=== PATIENT | female | born 1975 | race Caucasian/White ===

== ENCOUNTER 2020-02-24 09:54 | Emergency (ER) | payer SELFPAY ==
[~2020-02-24] VITALS: Ht 162 cm; Wt 100.1 kg
[2020-02-24 10:00] VITALS: BP 133/86
--- OUTSIDE RECORDS SUMMARY | 2020-02-24 10:00 | XMS REPORT ---
Author Author Bria Boyd Organization [facility] Address [address], [place] [id number] Care Team Providers Care Tearoom Hostess Name Role Phone Delta Boyd Unavailable PROBLEMS Unknown Problems ALLERGIES Unknown Allergies SOCIAL HISTORY No smoking Hx information available PLAN OF CARE VITAL SIGNS MEDICATIONS Unknown Medications RESULTS No Results PROCEDURES No Known procedures IMMUNIZATIONS No Known Immunizations
--- OUTSIDE RECORDS SUMMARY | 2020-02-24 10:00 | XMS REPORT ---
Author Author Bria Tolentino Organization [employer] Address Unknown Phone Unavailable Care Team Providers Care Assembler [place] Name Role Phone Ruth Ann Tolentino CP Unavailable Allergies, Adverse Reactions, Alerts Substance Reaction Event Type Penicillin Rash Non Drug Allergy Problems Problem Type Condition ICD-9 Code Onset Dates Condition Statu s Assessment Vaginal odor 625.9 Active Medications Medication Code System Code Instructions Start Date End Date Status Dosage hydrocodone Unknown 0 January 10, 2014 Active as di rected Metronidazole [facility] [address]-07 500 mg Orally Twice a day January 10, 2014 Active 1 tablet Procedures Procedure Coding System Code Date ESTABPT LEVEL III CPT-4 01198 January 10, 2014 Results No Known Results Summary Purpose [employer] Submission
--- OUTSIDE RECORDS SUMMARY | 2020-02-24 10:00 | XMS REPORT ---
Author Author Bria Boyd Organization [facility] Address [address], [place] [id number] Care Team Providers Care Phys Asst Name Role Phone Delta Boyd Unavailable PROBLEMS Unknown Problems ALLERGIES Unknown Allergies SOCIAL HISTORY No smoking Hx information available PLAN OF CARE VITAL SIGNS MEDICATIONS Unknown Medications RESULTS No Results PROCEDURES No Known procedures IMMUNIZATIONS No Known Immunizations
--- NOTE | 2020-02-24 10:21 | ED General ---
General Chief Complaint: Upper Extremity Stated Complaint: ARM AND HANDS NUMB AND SWELLING Nursing Triage Note: States she has bulging discs in her neck that she is supposed to have surgery for. Two days ago the right arm and hand started going numb and now both hands and arms are numb and painful. States she has been unable to sleep due to pain and numbness. Pain rated at 9/10. Has taken mobic and lyrica for pain. Nursing Sepsis Screen: No Definite Risk Source of Information: Patient Exam Limitations: Intoxication History of Present Illness Date Seen by Provider: Feb 24, 2020 Time Seen by Provider: 10:10 Initial Comments Patient is a 45-year-old female with history of cervical radiculopathy currently scheduled to undergo surgery who presents with intermittent neuropathy of both hands and forearms. Patient states symptoms began 3 days ago. She is currently on the Lyrica, mobic and a muscle relaxers, but states her pain is still currently not admitted 10. She is in the [facility]. She denies motor weakness of the upper extremities. Denies injury or trauma to the region. Denies worsening neck pain. Other acute symptoms or complaints. Timing/Duration: 3-4 Days Severity: Severe Modifying Factors: improves with Medication Associated Systoms: Denies Symptoms Allergies and Home Medications Allergies Coded Allergies: Penicillins (Verified Allergy, Unknown, unknown , 02/24/20) Patient Home Medication List Home Medication List Reviewed: Yes Review of Systems Review of Systems Constitutional: no symptoms reported EENTM: no symptoms reported Respiratory: no symptoms reported Cardiovascular: no symptoms reported Gastrointestinal: no symptoms reported Musculoskeletal: see HPI Psychiatric/Neurological: See HPI, Anxiety, Paresthesia; Denies Weakness Past Ievutdr-Kipngr-Kylyry Hx Past Med/Social Hx: Reviewed Nursing Past Med/Soc Hx Patient Social History Alcohol Use: Denies Use Recreational Drug Use: No Smoking Status: Current Everyday Smoker Type Used: Electronic/Vapor 2nd Hand Smoke Exposure: Yes Recent Foreign Travel: No Contact w/Someone Who Travel: No Recent Infectious Disease Expo: No Recent Hopitalizations: No Seasonal Allergies Seasonal Allergies: No Past Medical History Surgeries: Yes Gallbladder, Tonsillectomy, Tubal Ligation Respiratory: No Cardiac: No Neurological: No Genitourinary: No Gastrointestinal: No Musculoskeletal: Yes (bulging discs in neck ) Endocrine: No HEENT: No Cancer: No Psychosocial: No Integumentary: No Physical Exam Vital Signs Vital Signs - First Documented 6/13/20 10:00 Temp 36.3 Pulse 98 Resp 20 B/P (MAP) 133/86 (102) Pulse Ox 96 Capillary Refill : Less Than 3 Seconds Height, Weight, BMI Height: '" Weight: lbs. oz. kg; 38.00 BMI Method: General Appearance: Anxious Eyes: Bilateral Eye Normal Inspection, Bilateral Eye PERRL, Bilateral Eye EOMI HEENT: PERRL/EOMI Neck: Normal Inspection, Supple Respiratory: Chest Non Tender, Lungs Clear Extremity: Other Neurologic/Psychiatric: Alert, Oriented x3, No Motor/Sensory Deficits; No Motor Weakness Skin: Normal Color, Warm/Dry Focused Exam Sepsis Stage: Ruled Out Progress/Results/Core Measures Suspected Sepsis Recent Fever Within 48 Hours: No Infection Criteria Present: None New/Unexplained Altered Menta: No Sepsis Screen: No Definite Risk SIRS Temperature: Pulse: 98 Respiratory Rate: 20 Blood Pressure 133 /86 Mean: 102 Results/Orders Vital Signs/I&O 02/24/20 10:00 Temp 36.3 Pulse 98 Resp 20 B/P (MAP) 133/86 (102) Pulse Ox 96 Capillary Refill : Less Than 3 Seconds Blood Pressure Mean: 102 Departure Communication (Admissions) H/o herniated cervical disk currently awaiting surgery. Worsening neuropathy w/o motor deficit. Recommend steroid dose-pack, outpatient MRI early next week if symptoms persist in early neurosurgical follow-up. Impression Primary Impression: Cervical neuropathy Disposition: , SELF-CARE Condition: Stable Departure-Patient Inst. Patient Instructions: Peripheral Neuropathy Add. Discharge Instructions: Please follow up with your primary care physician or sole painter for further management of chronic neck and arm pain. Contact your neurosurgeon for Mondays symptoms persist scheduled follow-up MRI and neurosurgical reevaluation. Continue home medications and take newly prescribed medication as directed. All discharge instructions reviewed with patient and/or family. Voiced understanding. Scripts Famotidine (Pepcid) 20 Mg Tablet 20 MG PO BID, #60 TAB Prov: FRANCIS AGUILAR DO 02/24/20 Methylprednisolone (Methylprednisolone Dose Pack) 4 Mg Tab.ds.pk 4 MG PO UD for 6 Days, #21 PKG PER DOSE PACK INSTRUCTIONS Prov: FRANCIS AGUILAR DO 02/24/20 FRANCIS AGUILAR DO Feb 24, 2020 10:21
[2020-02-24] MEDS ORDERED: METH4TAB10 PO (10:26)
[2020-02-24] MEDS ORDERED: FAMO-119 PO (10:26)
== END 2020-02-24 10:32 | disposition home or self-care (01) ==
LOC: ER FS 09:56
DX: G62.9 Polyneuropathy, unspecified (principal); F17.290 Nicotine dependence, other tobacco product, uncomplicated; Z88.0 Allergy status to penicillin
CPT/HCPCS: 99282

== ENCOUNTER 2022-08-18 12:51 | Emergency (ER) | payer MEDICAID ==
[~2022-08-18] VITALS: Ht 165.1 cm; Wt 100.8 kg
[~2022-08-18 12:51] MED LIST: FAMO-119 PO; METH4TAB10 PO
[2022-08-18] MEDS ORDERED: FAMOTIDINE 20 MG (PEPCID) TABLET PO STA (13:03)
[2022-08-18] MEDS ORDERED: ANTACID SUSP 30 ML UDC (MYLANTA) PO ONE (13:15)
[2022-08-18] MEDS ORDERED: LIDOCAINE 2% VISCOUS 15 ML UDC PO ONE (13:15)
[2022-08-18] MEDS ORDERED: ASPIRIN 81 MG CHEW (CHILDREN'S ASA) PO ONE (13:15)
--- NOTE | 2022-08-18 13:16 | ED Cardiac General ---
History of Present Illness General Chief Complaint: Chest Pain Stated Complaint: CHEST/BACK/LEFT ARM PAIN Source: patient Exam Limitations: no limitations History of Present Illness Date Seen by Provider: Aug 18, 2022 Time Seen by Provider: 12:53 Initial Comments 47-year-old female with past medical history of prediabetes on Ozempic coming in due to chest pain. Its been constant for 2 days, throbbing, center of her chest, does not radiate anywhere, moderate. Nothing really seems to make it better or worse. Has not taken any medicines for it as of yet. Has never had pain like this before. Denies any shortness of breath, cough, nausea, vomiting, diarrhea, weakness, numbness, abdominal pain, rash, headache, vision changes, or any other concerns. Is otherwise denying any other acute complaints. Denies any cardiac history personally, any prior history of DVT or PE, no lower extremity swelling or pain, no recent surgery, no recent long travel, and does not take any hormones. Allergies and Home Medications Allergies Coded Allergies: Penicillins (Verified Allergy, Unknown, unknown , 02/24/20) Patient Home Medication List Home Medication List Reviewed: Yes Famotidine (Pepcid) 20 Mg Tablet, 20 MG PO BID Prescribed by: FRANCIS AGUILAR on 02/24/20 1026 Methylprednisolone (Methylprednisolone Dose Pack) 4 Mg Tab.ds.pk, 4 MG PO UD Prescribed by: FRANCIS AGUILAR on 02/24/20 1026 Review of Systems Review of Systems Constitutional: No fever EENTM: No Symptoms Reported Respiratory: No Symptoms Reported Cardiovascular: Chest Pain Gastrointestinal: No Symptoms Reported Genitourinary: No Symptoms Reported Musculoskeletal: no symptoms reported Skin: no symptoms reported Psychiatric/Neurological: No Symptoms Reported Endocrine: No Symptoms Reported Hematologic/Lymphatic: No Symptoms Reported All Other Systems Reviewed Negative Unless Noted: Yes Past Nzqpeoz-Vslebe-Zrbxhm Hx Patient Social History Tobacco Use?: No Use of E-Cig and/or Vaping dev: Yes E-Cig or Vaping type used: Nicotine Substance use?: No Alcohol Use?: No Seasonal Allergies Seasonal Allergies: No Past Medical History Surgeries: Yes Gallbladder, Tonsillectomy, Tubal Ligation Respiratory: No Cardiac: No Neurological: No Genitourinary: No Gastrointestinal: No Musculoskeletal: Yes (bulging discs in neck ) Endocrine: No HEENT: No Cancer: No Psychosocial: No Integumentary: No Physical Exam Vital Signs Vital Signs - First Documented 08/18/22 12:55 Temp 36.4 Pulse 89 Resp 20 B/P (MAP) 142/81 (101) Pulse Ox 99 O2 Delivery Room Air Capillary Refill : Height, Weight, BMI Height: '" Weight: lbs. oz. kg; 38.00 BMI Method: General Appearance: No Apparent Distress, WD/WN HEENT: PERRL/EOMI, Normal ENT Inspection, Pharynx Normal Neck: Full Range of Motion, Normal Inspection, Non Tender, Supple Respiratory: Chest Non Tender, Lungs Clear, Normal Breath Sounds, No Accessory Muscle Use, No Respiratory Distress Cardiovascular: Regular Rate, Rhythm, No Edema, Normal Peripheral Pulses Gastrointestinal: Normal Bowel Sounds, Non Tender, Soft; No Distended, No Guarding Extremity: Normal Capillary Refill, Normal Inspection, Normal Range of Motion, Non Tender, No Calf Tenderness Neurologic/Psychiatric: Alert, No Motor/Sensory Deficits, Normal Mood/Affect Skin: Normal Color, Warm/Dry Lymphatic: No Adenopathy Progress/Results/Core Measures Results/Orders Lab Results Laboratory Tests Test 08/18/22 13:05 Range/Units White Blood Count 11.7 H 4.3-11.0 10^3/uL Red Blood Count 5.24 H 3.80-5.11 10^6/uL Hemoglobin 11.9 11.5-16.0 g/dL Hematocrit 38 35-52 % Mean Corpuscular Volume 73 L 80-99 fL Mean Corpuscular Hemoglobin 23 L 25-34 pg Mean Corpuscular Hemoglobin Concent 31 L 32-36 g/dL Red Cell Distribution Width 16.7 H 10.0-14.5 % Platelet Count 362 130-400 10^3/uL Mean Platelet Volume 9.4 9.0-12.2 fL Immature Granulocyte % (Auto) 0 % Neutrophils (%) (Auto) 67 42-75 % Lymphocytes (%) (Auto) 27 12-44 % Monocytes (%) (Auto) 4 0-12 % Eosinophils (%) (Auto) 1 0-10 % Basophils (%) (Auto) 0 0-10 % Neutrophils # (Auto) 7.9 H 1.8-7.8 10^3/uL Lymphocytes # (Auto) 3.1 1.0-4.0 10^3/uL Monocytes # (Auto) 0.5 0.0-1.0 10^3/uL Eosinophils # (Auto) 0.1 0.0-0.3 10^3/uL Basophils # (Auto) 0.0 0.0-0.1 10^3/uL Immature Granulocyte # (Auto) 0.0 0.0-0.1 10^3/uL Prothrombin Time 12.4 12.2-14.7 SEC INR Comment 0.9 0.8-1.4 Activated Partial Thromboplast Time 25 24-35 SEC Sodium Level 138 135-145 MMOL/L Potassium Level 4.5 3.6-5.0 MMOL/L Chloride Level 105 98-107 MMOL/L Carbon Dioxide Level 21 21-32 MMOL/L Anion Gap 12 5-14 MMOL/L Blood Urea Nitrogen 7 7-18 MG/DL Creatinine 0.71 0.60-1.30 MG/DL Estimat Glomerular Filtration Rate 105 BUN/Creatinine Ratio 10 Glucose Level 104 70-105 MG/DL Calcium Level 8.9 8.5-10.1 MG/DL Corrected Calcium 9.2 8.5-10.1 MG/DL Magnesium Level 1.8 1.6-2.4 MG/DL Total Bilirubin 0.2 0.1-1.0 MG/DL Aspartate Amino Transf (AST/SGOT) 18 5-34 U/L Alanine Aminotransferase (ALT/SGPT) 18 0-55 U/L Alkaline Phosphatase 110 40-136 U/L Troponin I < 0.30 <0.30 NG/ML Total Protein 7.6 6.4-8.2 GM/DL Albumin 3.6 3.2-4.5 GM/DL Lipase 31 8-78 U/L My Orders Orders - FERNANDA GARCIA MD Cbc With Automated Diff (08/18/22 13:03) Magnesium (08/18/22 13:03) Chest 1 View Ap/Pa Only (08/18/22 13:03) Ekg Tracing (08/18/22 13:03) Comprehensive Metabolic Panel (08/18/22 13:03) Protime With Inr (08/18/22 13:03) Partial Thromboplastin Time (08/18/22 13:03) O2 (08/18/22 13:03) Monitor-Rhythm Ecg Trace Only (08/18/22 13:03) Aspirin Chewable Tablet (Baby Aspirin Ch (08/18/22 13:15) Ed Iv/Invasive Line Start (08/18/22 13:03) Lipase (08/18/22 13:03) Troponin I Fs (08/18/22 13:03) Lidocaine 2% Viscous 15 Ml (Xylocaine Vi (08/18/22 13:15) Famotidine Tablet (Pepcid Tablet) (08/18/22 13:03) Antacid Suspension (Mylanta Suspension (08/18/22 13:15) Medications Given in ED Current Medications Medications Dose Ordered Sig/Tima Route Start Time Stop Time Status Last Admin Dose Admin Al Hydrox/Mg Hydrox/Simethicone 30 ml ONCE ONCE PO 08/18/22 13:15 08/18/22 13:16 DC 08/18/22 13:32 30 ML Aspirin 324 mg ONCE ONCE PO 08/18/22 13:15 08/18/22 13:16 DC 08/18/22 13:33 324 MG Lidocaine HCl 15 ml ONCE ONCE PO 08/18/22 13:15 08/18/22 13:16 DC 08/18/22 13:32 15 ML Vital Signs/I&O 08/18/22 12:55 Temp 36.4 Pulse 89 Resp 20 B/P (MAP) 142/81 (101) Pulse Ox 99 O2 Delivery Room Air Progress Progress Note : Progress Note 47-year-old female with above history coming in due to 2 days of constant chest pain. ABCs were intact and vitals were stable on presentation. EKG with no acute ischemic changes. Chest x-ray with no acute findings. The patient was given aspirin as well as a GI cocktail. An IV was placed and basic labs were obtained including cardiac biomarkers. Troponin is negative, given the constant pain for 2 days, very unlikely to be ACS. Otherwise low risk for PE. Patient symptoms have improved and I believe she is stable for discharge with outpatient follow-up. She was sent home with strict return precautions Initial ECG Impression Date: Aug 18, 2022 Initial ECG Impression Time: 13:00 Initial ECG Rate: 85 Initial ECG Rhythm: Normal Sinus Comment Narrow QRS, normal axis, T wave inversions in leads III and aVF but otherwise no significant ST changes Diagnostic Imaging Diagonstic Imaging: Xray Plain Films/CT/US/NM/MRI: chest Comments NAME: ALIZA MACHADO [facility] REC#: [id number] PT STATUS: REG ER : 1975 PHYSICIAN: FERNANDA GARCIA MD ADMIT DATE: 08/18/22/ER FS Draft Date of Exam:08/18/22 CHEST 1 VIEW AP/PA ONLY INDICATION: Chest pain. COMPARISON: No previous study is available for comparison at this time. FINDINGS: Heart size and pulmonary vasculature are within normal limits, and the lungs are clear, bilaterally. IMPRESSION: Unremarkable chest. Dictated on workstation # [id number] Dict: 08/18/22 1405 Trans: 08/18/22 1406 [id number] Interpreted by: JASMINA ALMAGUER MD Electronically signed by: Departure Impression Primary Impression: Chest wall pain Disposition: 01 HOME, SELF-CARE Condition: Stable Departure-Patient Inst. Decision time for Depature: 14:15 Referrals: ZACH CASTANO APRN (PCP) Primary Care Physician CIPRIANO MAYORGA JR, MD Patient Instructions: Chest Pain (DC) Add. Discharge Instructions: Your work-up in the ER is reassuring and it does not appear like you are having anything life-threatening occurring at this time. If the chest pain does persist, I do want you to follow-up with a saw man in [facility], Dr. Mayorga. His number is in this paperwork. Work/School Note: Work Release Form Date Seen in the Emergency Department: Aug 18, 2022 Return to Work: Aug 19, 2022 Restrictions: No Restrictions FERNANDA GARCIA MD Aug 18, 2022 13:16
[2022-08-18 13:36] LABS: BASOPHILS % (AUTO) 0 % (0-10); EOSINOPHILS # (AUTO) 0.1 10^3/uL (0.0-0.3); EOSINOPHILS % (AUTO) 1 % (0-10); HEMATOCRIT 38 % (35-52); HEMOGLOBIN 11.9 g/dL (11.5-16.0); LYMPHOCYTES # (AUTO) 3.1 10^3/uL (1.0-4.0); LYMPHOCYTES % (AUTO) 27 % (12-44); MEAN CORPUSCULAR HEMOGLOBIN 23 pg (25-34); MEAN CORPUSCULAR HGB CONC 31 g/dL (32-36); MEAN CORPUSCULAR VOLUME 73 fL (80-99); MEAN PLATELET VOLUME 9.4 fL (9.0-12.2); MONOCYTES # (AUTO) 0.5 10^3/uL (0.0-1.0); MONOCYTES % (AUTO) 4 % (0-12); NEUTROPHILS # (AUTO) 7.9 10^3/uL (1.8-7.8); NEUTROPHILS % (AUTO) 67 % (42-75); PLATELET COUNT 362 10^3/uL (130-400); WHITE BLOOD COUNT 11.7 10^3/uL (4.3-11.0)
[2022-08-18 13:50] LABS: INR 0.9 (0.8-1.4); PROTHROMBIN TIME PATIENT 12.4 SEC (12.2-14.7)
[2022-08-18 13:56] LABS: CREATININE SERUM 0.71 MG/DL (0.60-1.30); POTASSIUM 4.5 MMOL/L (3.6-5.0)
[2022-08-18 13:57] LABS: ALBUMIN 3.6 GM/DL (3.2-4.5); BILIRUBIN,TOTAL 0.2 MG/DL (0.1-1.0); CALCIUM 8.9 MG/DL (8.5-10.1); MAGNESIUM 1.8 MG/DL (1.6-2.4); TOTAL PROTEIN 7.6 GM/DL (6.4-8.2)
--- NOTE | 2022-08-18 14:07 | Diagnostic Imaging Report ---
INDICATION: Chest pain. COMPARISON: No previous study is available for comparison at this time. FINDINGS: Heart size and pulmonary vasculature are within normal limits, and the lungs are clear, bilaterally. IMPRESSION: Unremarkable chest. Dictated by: Dictated on workstation # [id number]
[2022-08-18 14:23] VITALS: BP 134/79
== END 2022-08-18 14:23 | disposition home or self-care (01) ==
LOC: EDUNIT# 12:51 → ER FS 12:53
DX: R07.89 Other chest pain (principal); R73.03 Prediabetes; F17.210 Nicotine dependence, cigarettes, uncomplicated; Z79.85 Long-term (current) use of injectable non-insulin antidiabetic drugs
CPT/HCPCS: 36415; 71045; 80053; 83690; 83735; 84484; 85025; 85610; 85730; 93005; 93041